=== PATIENT | female | born 1960 | race Caucasian/White ===

== ENCOUNTER 2019-12-07 09:58 | Emergency (ER) | payer OTHER ==
[~2019-12-07] VITALS: Ht 162.6 cm; Wt 129.6 kg
[2019-12-07 10:52] LABS: BASO % 0.4 % (0.0-1.0); EOS % 0.4 % (0.0-3.0); HEMOGLOBIN 13.1 g/dl (12.0-15.5); MEAN CORPUSCULAR HEMOGLOBIN 27.4 pg (27.0-33.0); MEAN CORPUSCULAR HGB CONC 29.8 g/dl (32.0-36.5); MEAN CORPUSCULAR VOLUME 92.1 fl (80.0-96.0); MONO # 0.3 10^3/uL (0.0-0.8); NEUTROPHILS # 6.5 10^3/uL (1.5-8.5); NEUTROPHILS % 81.4 % (36.0-66.0); PLATELET COUNT, AUTOMATED 304 10^3/uL (150-450); RED BLOOD COUNT 4.78 10^6/uL (4.00-5.40)
[2019-12-07] MEDS ORDERED: ONDANSETRON 4MG/2ML VIAL (J2405) As Ordered ONE (11:01)
[2019-12-07] MEDS ORDERED: NS 1,000 ML IV ONE (11:15)
[2019-12-07] MEDS ORDERED: ONDANSETRON 4MG/2ML VIAL (J2405) IV ONE (11:15)
[2019-12-07] MEDS ORDERED: METOCLOPRAMIDE INJ 10MG/2ML VIAL (J2765) IV ONE (11:15)
[2019-12-07 11:18] LABS: ALBUMIN 3.6 GM/DL (3.2-5.2); ALT/SGPT 20 U/L (12-78); BILIRUBIN,DIRECT < 0.1 MG/DL (0.0-0.2); BILIRUBIN,TOTAL 0.2 MG/DL (0.2-1.0); LIPASE 87 U/L (73-393); TOTAL PROTEIN 6.9 GM/DL (6.4-8.2)
[2019-12-07] MEDS ORDERED: ISOVUE-370 76% 100ML VIAL (Q9967) As Ordered ONE (11:49)
--- NOTE | 2019-12-07 12:02 | REP ---
CT BRAIN WITHOUT IV CONTRAST: CT brain performed without IV contrast. Coronal reconstruction images are performed. Ventricles are normal in size and position with no midline shift or mass effect. Sam-white differentiation is well maintained. No acute hemorrhage is seen. There is no extra-axial fluid collection. Bone window examination is unremarkable. IMPRESSION: Negative noncontrast CT brain. Electronically Signed by Navid Sam MD 12/08/2019 11:23 A
[2019-12-07] MEDS ORDERED: AMLO5TAB6 (13:54)
[2019-12-07] MEDS ORDERED: SPIR1TAB34 (13:54)
[2019-12-07] MEDS ORDERED: PANT20TA2 (13:54)
[2019-12-07] MEDS ORDERED: ATOR40TA75 (13:54)
--- NOTE | 2019-12-07 14:04 | REP ---
CT of the abdomen and pelvis with IV contrast, without bowel contrast for intractable vomiting: There are no comparison studies. Within the visualized lower lung amador. There is a huge hiatal hernia containing the entire stomach and transverse colon. There is no evidence of gastric volvulus or transverse colon volvulus. In the abdomen there is no bowel distension or obstruction. The visualized lung amador demonstrate compression atelectasis from the large hiatal hernia but otherwise are unremarkable. The hepatic parenchyma, gallbladder, pancreas and spleen are unremarkable. The adrenals are unremarkable. The kidneys are unremarkable. The abdominal aorta is unremarkable. There is no retroperitoneal adenopathy or mass. There is no bowel distension or obstruction. Mesentery is unremarkable. There are occasional diverticula in the descending colon and sigmoid colon. There is no CT evidence of diverticulitis. Pelvis: The pancreas is unremarkable. The uterus, adnexa and bladder are unremarkable. There is no adenopathy or ascites. Impression: Huge hiatal hernia containing the entire stomach as well as the transverse colon. There is no gastric fundus. There is no transverse colon volvulus. There is no evidence of bowel distension or obstruction. There is no ascites, adenopathy or mass. Diverticulosis without diverticulitis. Electronically Signed by Navid Floyd MD 12/07/2019 01:56 P
[2019-12-07] MEDS ORDERED: ACETAMINOPHEN *IV* 1,000 MG in IV 1 EA IV ONE (14:15)
[2019-12-07] MEDS ORDERED: PROT1TAB2 PO (15:11)
[2019-12-07] MEDS ORDERED: ONDA4TAB6 PO (15:12)
[2019-12-07] MEDS ORDERED: REGL10TA6 PO (15:12)
[2019-12-07 16:02] VITALS: BP 134/80
--- NOTE | 2019-12-08 07:28 | REP ---
O chest, 11:25 a.m., single AP view with the the patient sitting: There are no comparisons. Lung amador are clear. Cardiac size is enlarged. The dylan, mediastinum, skeletal structures are unremarkable. Impression: Cardiomegaly, otherwise negative portable chest. Electronically Signed by Navid Floyd MD 12/07/2019 11:37 A
== END 2019-12-07 16:12 | disposition home or self-care (01) ==
LOC: M ED 09:58
DX: K44.9 Diaphragmatic hernia without obstruction or gangrene (principal); I10 Essential (primary) hypertension; E78.5 Hyperlipidemia, unspecified; Z79.899 Other long term (current) drug therapy
CPT/HCPCS: 70450; 71045; 74177; 80047; 80076; 83690; 85025; 93041; 96361; 96365; 96375; 99285; J0131; J2405; J2765; Q9967